=== PATIENT | female | born 2000 | race Caucasian/White ===

== ENCOUNTER → 2024-09-30 | Outpatient (CLI) | payer BC ==
--- NOTE | 2024-09-30 16:37 | US ---
EXAMINATION TYPE: US extremity nonvasc mass LT DATE OF EXAM: 09/30/2024 COMPARISON: NONE CLINICAL INDICATION: Female, 23 years old with history of R2242 LOCALIZED SWELLING, MASS LUMP, LEFT; Left anterior lower leg swelling. No redness. TECHNIQUE: Multiple grayscale and color Doppler ultrasound images of the left anterior lower extremi ty and air consistent with obtained. FINDINGS/IMPRESSION: Area of concern scanned. Soft tissue edema demonstrated. No masses or lesions identified. No organized fluid collection. [facility], , 09/30/2024 4:35 PM
== END | disposition home or self-care (01) ==
LOC: RADUSWWP 14:53
PROVIDERS: ATTEND Family Medicine
DX: R22.42 Localized swelling, mass and lump, left lower limb (principal)

== ENCOUNTER → 2025-01-24 | Day surgery (SDC) | payer BC ==
[2025-01-23 09:12] VITALS: BMI 44.6
[~2025-01-24] MED LIST: LIDOCAINE 1% INJ 10MG/ML (20 ML MDV) ONE; PROPOFOL 10 MG/ML 20 ML VIAL IV ONE
[2025-01-24] MEDS: LIDOCAINE 1% (10MG/ML) FOR IV START INTRADERMA STA (08:40)
[2025-01-24] MEDS: LACTATED RINGERS 1,000 ML IV SCH (08:40)
[2025-01-24] MEDS: IV FLUID CONTINUATION 1,000 ML IV ONE (08:40)
[2025-01-24 08:50] VITALS: RESP 16; TEMP 98.1
--- NOTE | 2025-01-24 09:46 | P.PCN ---
Date of Procedure: 01/24/25 Procedure(s) Performed: Brief history: Patient is a pleasant 84-year-old white female scheduled for an elective upper endoscopy as well as colonoscopy as a part of evaluation of epigastric pain, intermittent nausea vomiting and rectal bleeding for the last several months duration Procedure performed: Esophagogastroduodenoscopy with biopsy Colonoscopy Preoperative diagnosis: Abdominal pain Intermittent rectal bleeding Anesthesia: MAC Procedure: After informed consent was obtained from the patient was brought into the endoscopy unit and IV sedation was administered by anesthesia under continuous monitoring. Initially upper endoscopy was done. The Olympus GF 160 video endoscope was inserted inserted into the mouth and esophagus intubated without any difficulty and was gradually advanced into the stomach and duodenum and carefully examined. The bulb and second part of the duodenum appeared normal. The scope was then withdrawn into the stomach adequately insufflated with air and upon careful examination the antrum patchy areas of erythema consistent with gastritis. Mucosa of the body, cardia and fundus appeared normal. The scope was then withdrawn into the esophagus. The GE junction was located at 40 cm to the incisors. It appeared regular with no erythema erosions or ulceratio ns. Rest of the esophagus appeared normal. Patient tolerated the procedure well. At this time the patient continued to remain sedation. Initial digital rectal examination was normal. Olympus CF 160 video colonoscope was then inserted into the rectum and gradually advanced to the cecum without any difficulty. Careful examination was performed as the scope was gradually being withdrawn. The prep was excellent. The cecum, ascending colon, transverse colon, descending colon, sigmoid colon and rectum appeared normal. Retroflexion was performed in the rectum and small internal hemorrhoids. Were noted. Patient tolerated the procedure well. Impression: 1. Upper endoscopy revealed mild antral gastritis but no evidence of esophagitis or peptic ulcer disease 2. 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 She was advised to follow-up with the biopsy results. Recommend to be on high-fiber diet and take fiber supplements on a regular basis.
[2025-01-24 10:08] VITALS: BP 144/69; PULSE 64
== END ==
LOC: ORWHC2ENDO 08:07
PROVIDERS: ATTEND Internal Medicine Gastroenterology
DX: K29.50 Unspecified chronic gastritis without bleeding (principal); K64.8 Other hemorrhoids; E78.5 Hyperlipidemia, unspecified; F98.8 Other specified behavioral and emotional disorders with onset usually occurring in childhood and adolescence; F41.9 Anxiety disorder, unspecified; F32.A Depression, unspecified; J45.909 Unspecified asthma, uncomplicated; E66.01 Morbid (severe) obesity due to excess calories; Z79.899 Other long term (current) drug therapy
CPT/HCPCS: 81025; 88305; 84703; 45378; 43239; J2003; J2704